=== PATIENT | female | born 1955 | race Caucasian/White ===

== ENCOUNTER 2023-07-03 06:54 | Day surgery (SDC) | payer MEDICARE, SELFPAY ==
[2023-07-03] VITALS (15 sets, daily range): BP systolic 101–164; BP diastolic 73–94; PULSE 70–96; RESP 16; TEMP 36.2–36.5; O2SAT 93–100; BMI 33.8
--- OUTSIDE RECORDS SUMMARY | 2023-07-03 07:01 | XMS_ITS | Clinical Summary ---
Author Name Unknown Organization [employer] [facility] [facility] Address [place], [place] [address] Care Team Providers Care Stone Cleaner Name Role Phone Swetha Bunn NP Primary Care Provider [phone] Angela Pena MD Unavailable [phone] Natasha Toledo RN, BSN Unavailable [phone] Debbie Nava RN Unavailable [phone] Allergies Active Allergy Reactions Criticality Noted Date Comments Nitrofurantoin Rash 02/17/2022 Morphine Hypertension Medium 05/21/2018 Medications Medication Sig Dispensed Refills Start Date End Date Status MULTIVITAMIN WITH IRON-MINERAL TAB Take by mouth once daily if needed. 0 02/08/2007 Active medical supply, miscellaneous (GRADUATED COMPRESSION STOCKINGS)Indicatio ns:Varicose veins with pain Thigh high; Strength: 20-30 mmHg Circ in cm: For thigh: Ankle 23.5 cm, Calf 39.4 cm, Thigh 64.8 cm, Thigh to Ankle length 80 cm EASE BRAND 1 Packet 0 02/07/2019 Active Sixbr-6-DRU-EPA-Fis h Oil (Fish Oil) 1,000 mg (120 mg-180 mg) cap Take by mouth. 0 Active Calcium-Cholecalcif charity, D3, (CALCIUM 500+D) 500 mg-10 mcg (400 unit) chewable tablet Chew 1 Tablet by mouth once daily. 0 09/30/2021 Active anastrozole (ARIMIDEX) 1 mg tabletIndications:M alignant neoplasm of upper-outer quadrant of right breast in female, estrogen receptor positive (HC) TAKE 1 TABLET BY MOUTH EVERY DAY 90 Tablet 3 02/07/2023 Active fluticasone (50 mcg per actuation) nasal solution (FLONASE)Indication s:Acute non-recurrent maxillary sinusitis Inhale 2 Sprays to both nostrils once daily. 16 g 0 03/31/2023 Active omeprazole (PRILOSEC) 40 mg Delayed-Release capsuleIndications: Gastroesophageal reflux disease with esophagitis without hemorrhage Take 1 Capsule (40 mg) by mouth once daily if needed for GI Upset. 100 Capsule 3 04/18/2023 Active triamcinolone (ARISTOCORT; KENALOG) 0.1 % creamIndications:Ch ronic eczema As directed 2 times daily if needed (Rash). 15 g 3 04/18/2023 Active valACYclovir (VALTREX) 1 gram tabletIndications:C old sore Take 1 Tablet (1 g) by mouth two times daily. 10 Tablet 2 04/18/2023 Active levothyroxine (SYNTHROID) 137 mcg tabletIndications:H ypothyroidism (acquired) Take 1 Tablet (137 mcg) by mouth once daily. 100 Tablet 1 06/06/2023 Active rivaroxaban (Xarelto) 10 mg tabletIndications:E ncounter for deep vein thrombosis (DVT) prophylaxis,Kiki 's deformity, left,Bone spur of posterior portion of left calcaneus Take 1 Tablet (10 mg) by mouth once daily with evening meal. 14 Tablet 0 06/29/2023 Active oxyCODONE (ROXICODONE) 5 mg immediate release tabletIndications:H aglund's deformity, left,Bone spur of posterior portion of left calcaneus Take 1 Tablet (5 mg) by mouth every 4 hours if needed for Pain. 10 Tablet 0 06/29/2023 Active levothyroxine (SYNTHROID) 112 mcg tabletIndications:H ypothyroidism (acquired) Take 1 Tablet (112 mcg) by mouth once daily. 100 Tablet 3 04/18/2023 3 Discontinue d(*Medicati on adjustment) levothyroxine (SYNTHROID) 25 mcg tabletIndications:H ypothyroidism (acquired) Take 1 Tablet (25 mcg) by mouth before breakfast. Take in addition to the 112 mcg tablet. 90 Tablet 0 04/19/2023 3 Discontinue d(*Medicati on adjustment) Active Problems Problem Noted Date Diagnosed Date Dysphagia 09/24/2021 Nuclear senile cataract of both eyes 09/06/2021 Malignant neoplasm of upper- outer quadrant of right breast in female, estrogen receptor positive 12/18/2020 Cancer Staging:Clinical stage from 12/16/2020:Stage IA(cT1b, cN0, cM0, G1, ER+, MA+, HER2-) - Signed by Farooq Howard MD on 12/18/2020 Pathologic:Stage IA(pT1c, pN0(sn), cM0, G1, ER+, MA+, HER2-) - Signed by Farooq Howard MD on 01/15/2021 BRBPR (bright red blood per rectum) 08/12/2019 Varicose veins of legs 04/30/2018 Overview: removal at [place] Hyperopia of both eyes with astigmatism and pres byopia 10/23/2017 History of esophageal dilatation 09/22/2017 Hx of colonic polyps 04/10/2017 Overview: 06/07 Diagnostic Colonoscopy was negative. Okay to repeat in 10 years. Thrombophlebitis of superfic ial veins of right lower extremity 03/21/2017 Varicose veins with pain 10/20/2015 Osteopenia 10/16/2013 Overview: dexa 2014 Allergic rhinitis 09/24/2009 Eczema 08/12/2009 Reflux esophagitis 04/09/2007 Overview: 03/25 Schatzki ring on EGD, dilated, use PPI indefinitely Resolved Problems Problem Noted Date Diagnosed Date Resolved Date Anticoagulation monitoring, INR range 2-3 10/02/2017 10/23/2021 Anticoagulation monitoring, INR range 2.5-3.5 [Z79.01] 09/27/2017 10/13/2017 Acute deep vein thrombosis ( DVT) of popliteal vein of right lower extremity 09/26/2017 08/23/2022 Varicose veins with pain 10/21/2015 Dysphagia, unspecified(787.20) 07/05/2013 10/10/2016 DVT of leg (deep venous thrombosis) 06/18/2012 08/23/2022 Overview: Twice after surgery. Had Hematology work up 05/30: [facility]ci aspirin treatment. DVT, recurrent, lower extremity, acute 05/24/2012 10/09/2013 Follow-up examination, follo wing other surgery 05/18/2012 10/09/2013 long term care social worker (current) use of anticoagulants 05/18/2012 10/09/2013 DVT of leg (deep venous thrombosis) 05/18/2012 06/18/2012 Follow-up examination, follo wing other surgery 05/17/2012 10/09/2013 Headache(784.0) 11/17/2010 06/06/2011 Jaw pain 12/11/2009 06/06/2011 Special screening for malign ant neoplasms, colon 12/05/2007 06/06/2011 Overview: 01/23--adenomatous polyp, repeat colon in 2011 Screening for lipoid disorders 12/05/2007 06/06/2011 Overview: 06/27 Cholesterol 177 HDL 49 LDL 98 TG 150 Other screening mammogram 09/10/2007 Overview: 08/24 normal 08/25 normal Encounters Date Type Department Care Team Description 06/26/2023 11:33 AM AIR QUALITY ENGINEER - 06/26/2023 11:59 PM [facility] Hospital Encounter [facility] [place] [address] [place] [address] Zaida Manjarrez MD Lurvey, Quinn Kathleen, PT Rotator cuff arthropathy of right shoulder 06/26/2023 Travel 06/21/2023 Telephone [facility] [address] [facility] [address] Carlos Manuel Núñez, DPM Questions 06/20/2023 11:46 AM AIR QUALITY ENGINEER - 06/20/2023 11:59 PM [facility] Hospital Encounter [facility] [place] [address] [place] [address] Zaida Manjarrez MD Lurvey, Quinn Kathleen, PT Rotator cuff arthropathy of right shoulder 06/20/2023 Travel 06/20/2023 Telephone [facility] [address] [facility] [address] Carlos Manuel Núñez, DPM Questions (07/03/23 - AMB SURGERY PODIATRY [[id number]]) 06/09/2023 Refill [facility] [address] [place] [address] Swetha Bunn, POLICYHOLDER INFORMATION CLERK Refill Request (Levothyroxine) 06/07/2023 Telephone [facility] [address] [place] [address] Swetha Bunn, POLICYHOLDER INFORMATION CLERK Results 06/06/2023 7:55 AM AIR QUALITY ENGINEER Preop Visit [facility] [address] [place] [address] Swetha Bunn, POLICYHOLDER INFORMATION CLERK Preoperative Exam (DOS 07/03/23); Immunization/Injectio n (COVID-19 vaccine) 06/05/2023 11:03 AM AIR QUALITY ENGINEER - 06/05/2023 11:59 PM AIR QUALITY ENGINEER Hospital Encounter [facility] [place] [address] [place] [address] Zaida Manjarrez MD Lurvey, Quinn Kathleen, PT Rotator cuff arthropathy of right shoulder 06/05/2023 Travel 05/29/2023 11:10 AM AIR QUALITY ENGINEER - 05/29/2023 11:59 PM AIR QUALITY ENGINEER Hospital Encounter [facility] [place] [address] [place], [place] [address] Zaida Manjarrez MD Lurvey, Quinn Kathleen, PT Rotator cuff arthropathy of right shoulder 05/29/2023 Travel 05/22/2023 10:54 AM AIR QUALITY ENGINEER - 05/22/2023 11:59 PM AIR QUALITY ENGINEER Hospital Encounter [facility] [place] [address] [place] [address] Zaida Manjarrez MD Romeo Cummings, PT 05/22/2023 Travel 05/16/2023 10:37 AM AIR QUALITY ENGINEER - 05/16/2023 11:59 PM AIR QUALITY ENGINEER Hospital Encounter [facility] [place] [address] [place] [address] Zaida Manjarrez MD Lymphedema; Rotator cuff arthropathy of right shoulder 05/16/2023 Travel 04/27/2023 9:15 AM AIR QUALITY ENGINEER Office Visit [facility] [address] [facility] [address] [place] [address] Zaida Manjarrez MD Cancer Rehabilitation (Breat cancer) 04/26/2023 3:00 PM AIR QUALITY ENGINEER Office Visit [facility] [address] [place] [address] Carlos Manuel Núñez, DPM Consult (Left plantar fasciitis ) 04/26/2023 Travel 04/19/2023 Telephone [facility] [address] [place] [address] Swetha Bunn, BOBBY Abnormal Lab Results 04/18/2023 7:30 AM CDT Office Visit [facility] [address] [facility] [place] [address] Swetha Bunn, POLICYHOLDER INFORMATION CLERK Medicare ANNUAL (subsequent) Visit 04/18/2023 Patient Outreach [facility] [address] [facility] [address] [place] [address] Natasha Toledo RN, BSN Cancer Rehab Care Coordination - [facility] 04/18/2023 Travel 04/06/2023 Patient Outreach [facility] [address] [place] [address] [place] [address] Natasha Toledo RN, BSN Cancer Rehab Care Coordination - [facility] 04/05/2023 7:56 AM CDT - 04/05/2023 11:59 PM CDT Hospital Encounter [facility] [address] [facility] [address] [place] [address] Angela Pena MD Malignant neoplasm of upper-outer quadrant of right breast in female, estrogen receptor positive (HC) (Primary Dx) 04/04/2023 9:00 AM CDT Office Visit [facility] [address] [place] [address] Sharon Alvarez NP Follow Up (6 month follow up / Zometa ) 04/04/2023 7:56 AM CDT - 04/04/2023 11:59 PM CDT Hospital Encounter [facility] [address] [place] [address] Malignant neoplasm of upper-outer quadrant of right breast in female, estrogen receptor positive (HC) (Primary Dx) 04/04/2023 Travel from Last 3 Months Immunizations Name Administration Dates Next Due COVID-19 Vaccine Spikevax (M oderna 50mcg/0.5mL) 12YO+ [id number] Formula PF 06/06/2023 COVID-19 vaccine (EyeScribesBio NTech 30mcg/0.3mL) PF, MDV 09/16/2020,08/25/2020 Influenza, High-dose Quadriv alent Inactivated 03/22/2023 Influenza, IIV3 (Age >=3 years) 03/07/20 13,03/19/2012,03/19/2011,2007 Influenza, IIV4 03/12/2021, 0,03/10/2019,2017,03/21/2016,03/13/2015,04/07/2014 Influenza, Inactivated AIIV4 (Age 65+ Years) Preserv Free 03/22/2022 Pneumococcal Conj 20-valent (Prevnar 20) 07/31/2022 Td (Age >=7 Years) 01/20/2022,03/06/2002 Tdap 03/07/2013,04/27/2012 Zoster (Shingrix-RZV, recombinant) 01/01/2019, Zoster (Zostavax-ZVL, live) 03/13/2015 Family History Medical History Relation Name Comments Stroke Brother 1 Tico age 49 Diabetes Brother 2 Ed Heart Disease Brother 2 Ed CABG age 48, d iabetes Throat cancer Brother 3 [place] Smoker Other Daughter Bladder Reflux leading to kidney failure. Diabetes Father Tico type 2 GI Disease Father Tico Liver cirrhosis Amblyopia Mother Naye Cancer Mother Naye Lung cancer, ja w cancer Stroke Mother Naye Genetic Other Mom-lazy eye, b lindness, acute glaucoma, headaches~Dad-Diabetes Other Paternal Grandmother Varicos e Veins Anesthesia Problem No Family History Blood Disease No Family History Cancer-breast No Family History Clotting disorder No Family History Relation Name Status Comments Brother 1 Tico Alive Brother 2 Ed (Age 55) Brother 3 [place] Alive Daughter Father Tico Mother Naye Other Paternal Grandmother Sister Alive Social History Tobacco Use Types Packs/Day Years Used Date Smoking Tobacco: Former Cigarettes 0.3 30 0 08/17/1976 - 08/17/2006 Smokeless Tobacco: Never Tobacco Cessation:Counseling Given: Not Answered Alcohol Use Standard Drinks/Week Comments Yes 0 (1 standard drink = 0.6 oz pur e alcohol) OCC Humiliation, Afraid, Rape, and Kick questionnair e Answer Date Recorded Fear of Current or Ex-Partner No Emotionally Abused No 10/26/2018 Physically Abused No 10/26/2018 Sexually Abused No 10/26/2018 PHQ-2 Answer Date Recorded PHQ-2 TOTAL SCORE 0 04/18/2023 [facility] - Occupational Stress Questionnaire Answer Date Recorded Feeling of Stress Not at all 10/26/2018 Exercise Vital Sign Answer Date Recorde d Days of Exercise per Week 3 days 2018 Minutes of Exercise per Session 30 min 10/26/2018 Social Connections Answer Date Recorded Frequency of Communication with Friends and Fami ly 0 03/31/2023 Financial Resource Strain Answer Date R ecorded Difficulty of Paying Living Expenses 3 03/31/2023 Difficulty of Paying Living Expenses Not on file 03/31/2023 Food Insecurity Answer Date Recorded Worried About Running Out of Food in the Last Ye ar 1 03/31/2023 Transportation Needs Answer Date Record ed Lack of Transportation (Medical) 1 03/31/2023 Housing Stability Answer Date Recorded Unable to Pay for Housing in the Last Year 1 03/31/2023 Sex and Gender Information Value Date Recorded Sex Assigned at Not on file Gender Identity Female 03/02/2023 2:56 PM CDT Sexual Orientation Not on file Obstetrics History Para Term AB IAB SAB Ectopic Multiple Livin g Live Births 2 2 Date Outcome GA Total Labor Labor/2nd/3rd Weight Sex Delivery Anes PTL Padma A1 A5 Name Cl in Para Para Last Filed Vital Signs Vital Sign Reading Time Taken Comments Blood Pressure 130/86 06/06/2023 7:53 AM AIR QUALITY ENGINEER Pulse 64 06/06/2023 7:53 AM AIR QUALITY ENGINEER Temperature 36.4 ??C (97.5 ??F) 04/27/2023 9:12 AM CS T Respiratory Rate 16 04/05/2023 8:32 AM CDT Oxygen Saturation 100% 06/06/2023 7:53 AM AIR QUALITY ENGINEER Inhaled Oxygen Concentration - - Weight 98 kg (216 lb) 06/06/2023 7:53 AM AIR QUALITY ENGINEER Height 171.5 cm (5' 7.52) 06/06/2023 7:53 AM CS T Body Mass Index 33.31 06/06/2023 7:53 AM AIR QUALITY ENGINEER Plan of Treatment Upcoming Encounters Date Type Department Care Team (Late st Contact Info) Description 07/03/2023 10:00 AM AIR QUALITY ENGINEER Office Visit [facility] at [address] [phone] Carlos Manuel Núñez DPM [address] [place] [address] 07/05/2023 3:00 PM AIR QUALITY ENGINEER Office Visit [facility] [address] [place] [address] Carlos Manuel Núñez DPM [address] [place] [address] 07/17/2023 11:15 AM AIR QUALITY ENGINEER Appointment [facility] [place] [address] [place] [id number] Romeo Cummings, PT [address] [place] [id number] 07/19/2023 3:00 PM AIR QUALITY ENGINEER Office Visit [facility] [address] [place] [address] Carlos Manuel Núñez DPM [address] [place] [address] 07/24/2023 11:15 AM AIR QUALITY ENGINEER Appointment [facility] [address] [place] [address] Romeo Cummings, PT [address] [place] [address] 07/31/2023 11:15 AM AIR QUALITY ENGINEER [facility] [address] [place] [address] Romeo Cummings, PT [address] [place] [address] 08/16/2023 3:00 PM AIR QUALITY ENGINEER Office Visit [facility] [address] [place] [address] Carlos Manuel Núñez DPM [address] [place] [address] 10/10/2023 8:00 AM CDT Appointment [facility] [address] [place] [address] 10/10/2023 8:30 AM CDT Office Visit [facility] [address] [place] [address] Sharon Alvarez, BOBBY [address] [place] [address] 10/10/2023 9:00 AM CDT Appointment [facility] [address] [place] [address] Health Maintenance Due Date Last Done Comments COVID-19 vaccine series ( season) 2023 06/06/2023, 01/17/2022, 02/16/2021, Additional history exists Mammogram for age 45-75 2023 12/01/19, 11/29/2021, 2020, Additional history exists Medicare Wellness for age 65+ 04/17/2024 04/18/2023, 04/12/2022 Depression screening for age 12+ 04/19/2024 04/19/2023, 04/18/2023, 04/18/2023, Additional history exists BMI (ht and wt on same day) for age 18+ 06/06/2024 06/06/2023, 04/18/2023, 03/02/2023, Additional history exists Lipids for age 45-75 04/18/2028 04/18/2023, 04/06/2022, 10/19/2021, Additional history exists Colonoscopy through age 75 08/12/202908/12, 04/10/2017, 12/08/2011, Additional history exists Tetanus booster 01/21/2032 01/20/2022, 02/17, 04/27/2012, Additional history exists Tdap Completed 03/07/2013, 04/27/2012 Hepatitis C screening for ag e 18-79 Completed 10/26/2018 Zoster (shingles) series for age 50+ Completed 01/01/2019, 10/26/2018, 03/13/2015 Pneumococcal series for age 65+ Completed DEXA/DXA scan for age 65+ Completed 2022, 10/28/2020, 10/14/2013 Influenza for age 65+ Completed 03/22/2023 , 03/22/2022, 03/12/2021, Additional history exists Medical Devices Implanted Type Area Music Typographer Device Identifier Shelf Expiration Date Model / Serial / Lot Alstead, Polysorb 3mm [id number] - [id number] Implanted:Qty: 2 on 05/04/2012 by Eliel Ashraf DPM at [facility] Right: Ankle 12/02/2013 [id number] / / [id number] Procedures Procedure Name Priority Date/Time Associated Diagnosis Comments TSH Routine 06/06/2023 9:29 AM AIR QUALITY ENGINEER Hypothyroidism (acquired) HEMOGLOBIN Routine 06/06/2023 8:20 AM AIR QUALITY ENGINEER Preop examination TSH Routine 04/18/2023 8:02 AM CDT Hypothyroidism (acquired) LIPID PANEL W REFLEX MEASURED LDL Routine 04/18/2023 8:02 AM CDT Lipid screening GLUCOSE, FASTING Routine 04/18/2023 8:02 AM CDT Diabetes mellitus screening CALCIUM Routine 04/04/2023 8:25 AM CDT Malignant neoplasm of upper-outer quadrant of right breast in female, estrogen receptor positive (HC) CREATININE Routine 04/04/2023 8:25 AM CDT Malignant neoplasm of upper-outer quadrant of right breast in female, estrogen receptor positive (HC) from Last 3 Months Results * TSH (06/06/2023 9:29 AM AIR QUALITY ENGINEER) Only the most recent of2 resultswithin the time period is included. TSH 0.41 0.27 - 4.20 uIU/mL 06/06/2023 5:42 PM AIR QUALITY ENGINEER [facility] Blood BLOOD SPECIMEN / Unknown Venipuncture / Unknown 06/06/2023 9:29 AM AIR QUALITY ENGINEER 06/06/2023 9:29 AM AIR QUALITY ENGINEER [facility] - 06/06/2023 5:42 PM AIR QUALITY ENGINEER In Adults, TSH values between 5.00 and 10.00 uIU/ml do not necessarily indicate the presence of Hypothyroidism. Correlation with clinical findings such as presence of goiter and/or Thyroperoxidase (TPO) Antibody may be helpful. For more information please refer to MAE 2004; 291: 228-238. Swetha Bunn NP CHEMISTRY [facility] [address] [place] [address], [place] * HEMOGLOBIN (06/06/2023 8:20 AM AIR QUALITY ENGINEER) HEMOGLOBIN 14.0 12.0 - 16.0 g/dL 06/06/2023 8:27 AM AIR QUALITY ENGINEER [facility] MCV 92 80 - 100 fL 06/06/2023 8:27 AM AIR QUALITY ENGINEER [facility] Blood BLOOD SPECIMEN / Unknown Venipuncture / Unknown 06/06/2023 8:20 AM AIR QUALITY ENGINEER 06/06/2023 8:20 AM AIR QUALITY ENGINEER Swetha Bunn NP HEMATOLOGY [facility] [address] [place] [address], * (ABNORMAL) LIPID PANEL W REFLEX MEASURED LDL (04/18/2023 8:02 AM CDT) CHOLESTEROL,TOTAL 216(H) 100 - 199 mg/dL 04/18/2023 5:17 PM CDT [facility] Comment: Cholesterol, Total Reference Ranges Desirable <200 mg/dL Borderline 200-239 mg/dL High >=240 mg/dL TRIGLYCERIDES 127 <150 mg/dL 04/18/2023 5:17 PM CDT [facility] HDL CHOLESTEROL 53 >40 mg/dL 5:17 PM CDT [facility] NON-HDL CHOLESTEROL 163(H) <145 mg/dl 04/18/2023 5:17 PM CDT [facility] CHOL/HDL RATIO 4.08 <4.50 04/18/2023 5:17 PM CDT [facility] LDL CHOLESTEROL 138(H) <=130 mg/dL 04/18/2023 5:17 PM CDT [facility] VLDL CHOLESTEROL 25 <=30 mg/dL 04/18/2023 5:17 PM CDT [facility] PROVIDER ORDERED STATUS RANDOM 04/18/2023 5:17 PM CDT [facility] Blood BLOOD SPECIMEN / Unknown Venipuncture / Unknown 04/18/2023 8:02 AM CDT 04/18/2023 8:02 AM CDT Swetha Bunn NP CHEMISTRY [facility] [address] [place] [address], * GLUCOSE, FASTING (04/18/2023 8:02 AM CDT) GLUCOSE 89 70 - 99 mg/dL 04/18/2023 8:54 AM CDT [facility] Blood BLOOD SPECIMEN / Unknown Venipuncture / Unknown 04/18/2023 8:02 AM CDT 04/18/2023 8:02 AM CDT Swetha Bunn NP CHEMISTRY Performing Organization Address City/[facility]/ZIP Co de Phone Number [facility] [address] [place] [address], * CREATININE (04/04/2023 8:25 AM CDT) eGFR >90 >90 mL/min/1.7 3m2 04/04/2023 11:25 AM CDT [facility] Comment:As of 2021, eG FR is calculated by the CKD-EPI creatinine equation without race adjustment. ??eGFR can be influenced by muscle mass, exercise, and diet. ??The reported eGFR is an estimation only and is only applicable if the renal function is stable. CREATININE 0.72 0.50 - 0.90 mg/dL 04/04/2023 11:25 AM CDT [facility] Blood BLOOD SPECIMEN / Unknown Venipuncture / Unknown 04/04/2023 8:25 AM CDT 04/04/2023 8:25 AM CDT Sharon Alvarez NP CHEMISTRY [facility] [address] [place] [address] * (ABNORMAL) CALCIUM (04/04/2023 8:25 AM CDT) CALCIUM 8.7(L) 8.8 - 10.2 mg/dL 04/04/2023 11:25 AM CDT [facility] Blood BLOOD SPECIMEN / Unknown Venipuncture / Unknown 04/04/2023 8:25 AM CDT 04/04/2023 8:25 AM CDT Sharon Alvarez NP CHEMISTRY [facility] [address] [place] [address] from Last 3 Months Advance Directives Documents on File Type Date Recorded Patient Building Guard Deputy Sheriff Denny eid Healthcare Directive 03/23/2022 CAITIE DANG, 03/23/2022 Healthcare Directive 12/27/2011 9:43 AM 01-17-2011 Latest Code Status on File Code Status Date Activated Date Inactivated Comments Full Code 09/24/2021 10:56 AM 09/24/2021 3:22 PM Question Answer Comments Code Status Discussion: Discussed Code Status History Code Status Date Activated Date Inactivated Comments Full Code 12/22/2020 6:22 AM 12/22/2020 4:48 PM Question Answer Comments Code Status Discussion: Not Discussed Full Code 08/12/2019 7:22 AM 08/13/2019 2:34 AM Question Answer Comments Code Status Discussion: Discussed Full Code 04/10/2017 9:43 AM 04/11/2017 2:35 AM Full Code 07/05/2013 9:55 AM 07/06/2013 2:27 AM Care Teams Stone Cleaner Relationship Specialty Start Date End Date Swetha Bunn, POLICYHOLDER INFORMATION CLERK [address] [place] [address] PCP - General Nurse Practitioner 11/10/17 Angela Pena MD [address] [facility] [address] [place] [address] Oncology Oncology 02/17/21 Natasha Toledo, RN, BSN [address] [id number] Cancer Rehab Care Coordination - [facility] Registered Nurse 10/18/21 Debbie Nava, BRANDO [address] [place] [address] Nurse Navigator - Oncology Registered Nurse 10/04/22
[2023-07-03] MEDS: LACTATED RINGERS 1000 ML 1,000 ML 100 ML IV (07:55)
[2023-07-03] MEDS: SODIUM CHLORIDE 0.9 % (FLUSH) 10 ML SYRINGE IVF (07:58)
--- NOTE | 2023-07-03 08:11 | SUR.PREOP ---
TIME?OUT:?8:15 PT/RN/MDA?VERIFICATION?OF?SURGICAL?SITE,?PROCEDURE,?AND?CONSENT OBTAINED?PRIOR?TO?INVASIVE?PROCEDURE.
[2023-07-03] MEDS: fentaNYL 100 MCG/2 ML inj IVP (08:17)
[2023-07-03] MEDS: MIDAZOLAM HCL 1 MG/ML inj IVP (08:17)
[2023-07-03] MEDS: CEFAZOLIN 2 GM INJ IVP (09:10)
[2023-07-03] MEDS: BUPIVACAINE 0.5% 30 ML INJECTION (09:22)
--- NOTE | 2023-07-03 09:30 | CRLHL7_ITS ---
For Patients: As a result of the Century Cures Act, medical imaging exams and procedure reports are released immediately into your electronic medical record. You may view this report before your referring provider. If you have questions, please contact your health care provider. INDICATION: Left calcaneal osteotomy TECHNIQUE: Left calcaneal osteotomy performed by Dr. Núñez. One C-arm spot images were obtained. Fluoroscopy time was 4.9 seconds. COMPARISON: None. FINDINGS: C-arm fluoroscopy for left calcaneal osteotomy. IMPRESSION: C-arm fluoroscopy for left calcaneal osteotomy. Dictated by Sivakumar Solorzano MD @ 07/04/2023 10:06:57 AM (Electronically Signed)
--- NOTE | 2023-07-03 10:08 | W.PM.NB ---
Nerve Block Nerve Block Time Seen by Provider: 08:20 Date Seen: 07/03/23 Type of block requested by surgeon for post-operative analgesia: popliteal Side: left Time out performed: Yes Verification of patient name: Yes Verification of date of : Yes Site marking: site marked Name of person performing procedure: Dennis Continuous monitoring Was continuous monitoring of O2 sat, B/P, storage brine worker, recorded every 15 minutes?: Yes Procedure Checklist: sterile prep, needles and gloves Ultrasound guided. Images saved: Yes Medications given in 5ml increments after negative aspiration: Ropivicaine %: 0.5 mL: 20 Needle gauge: 22 Patient tolerated procedure well: Yes Additional comments: Needle noted adjacent to nerve Block Charges Block Charge (with Pro Fee): Sciatic Nerve Use of Ultrasound Machine for Block: Yes- US Guidance/pain block
--- NOTE | 2023-07-03 10:41 | W.ANESCHARGE ---
Anesthesia Charges Start Date/Time Anesthesia Start Date: 07/03/23 Anesthesia Start Time: 09:05 Stop Date/Time Anesthesia Stop Date: 07/03/23 Anesthesia Stop Time: 10:41
--- NOTE | 2023-07-03 10:46 | W.ANESCHARGE ---
Anesthesia Charges Start Date/Time Anesthesia Start Date: 07/03/23 Anesthesia Start Time: 09:05 Stop Date/Time Anesthesia Stop Date: 07/03/23 Anesthesia Stop Time: 10:41
--- NOTE | 2023-07-03 14:16 | PM.GSPRC ---
Operative Note Date of procedure: 07/03/23 Pre-op diagnosis: 1. 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 Calcific Achilles tendinitis left Post-op diagnosis: 1. 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 Calcific Achilles tendinitis left Type of Procedure: Calcaneal ostectomy with Achilles repair left Indications: Patient was seen in clinic for ongoing left heel pain. She has elected surgical intervention. Reviewed the procedure, recovery, expectation potential complications. These include but are not limited to: Poor wound healing, infection, potential need for future surgery, deep venous thrombosis, pulmonary embolism and possible . All questions answered and consent obtained. She has a history of DVT following foot surgery and will be placed on Xarelto postop. Procedure Description: After discussing the risks and benefits of the procedure, the patient signed informed consent.? The operative site was marked and the patient was brought to the operating room.?? The patient was then intubated by anesthesia and then rolled onto the operating room table in a prone position. She is appropriately padded.??She had a preoperative popliteal block and I injected an additional 10 mL of 0.5% Marcaine plain at the operative site. The operative site was then prepped and draped in the usual sterile fashion.? A time-out was then performed. The left leg was then exsanguinated and the thigh tourniquet inflated to 300 mm Hg. Linear incision is made along the posterior lateral Achilles tendon extending distally to the insertion stopping short of the plantar fat pad. Incision was carried down through skin subcutaneous tissues. Paratenon was incised in the lateral edge of the Achilles tendon identified. This was tracked distally and a linear incision is made at the insertion along the lateral edge and the Achilles tendon reflected from the insertion medially. The large bony spur was noted and removed with a rongeur. Small amount of unhealthy tendon was debrided. Using a sagittal saw the enlarged posterior superior tubercle of the calcaneus was resected using C-arm for guidance. A power rasp was then used to remodel the posterior calcaneus. Wound was irrigated with normal sterile saline. C-arm confirmed excellent resection. Drill holes made at the superior lateral and superior medial aspect of the calcaneus. 4.5 mm SwiveLock anchors and inserted. FiberTape from the medial and lateral anchor was passed through the Achilles tendon at the appropriate level. Tendon was then advanced and tensioned down to the calcaneus. Two additional drill holes were placed inferior to the insertion. One FiberTape tail from each anchor site was then brought together starting lateral and advanced SwiveLock anchor tensioning the fiber tape onto the tendon. Next the remaining FiberTape tails were passed through SwiveLock anchor which was inserted in the medial the drill hole again tensioned the fiber tape onto the tendon. Irrigated with normal sterile saline. Paratenon was repaired with 3-0 assist Vicryl. The subcutaneous tissues reapproximated with 4-0 Monocryl and skin closed with 4-0 Prolene. Sterile dressings were then applied. Tourniquet was released and normal cap refill time returned all digits. A well-padded below-knee plaster splint applied with the foot in plantar flexed position.? The patient was then woken and transported to the recovery area in stable condition. The patient tolerated the procedure well. She is to be discharged per same-day protocol. She is nonweightbearing with crutches. She has oxycodone for pain. She will follow up later this week. Start Xarelto tomorrow. Complications: None apparent Implants: [employer] SpeedBridge kit x1 Anesthesia: GETA and regional Surgeon: Carlos Manuel Núñez DPM Estimated blood loss (mL): 5 Condition: stable Disposition: PACU
== END 2023-07-03 12:24 | disposition home or self-care (01) ==
PROVIDERS: PCP Nurse Practitioner Family; Visit Provider Podiatrist
PROC: (CPT 28300; principal; 2023-07-03 09:30)
DX: M92.62 Juvenile osteochondrosis of tarsus, left ankle (principal); M65.272 Calcific tendinitis, left ankle and foot; G89.18 Other acute postprocedural pain; M79.672 Pain in left foot
CPT/HCPCS: 28118; 27650; 01480; 64445; 73630; 73650; 76000; 76942; C1713; J0330; J0665; J0690; J1100; J2250; J2405; J2704; J2795; J3010; J7120